=== PATIENT | male | born 2005 | race Two or more races ===

== ENCOUNTER 2024-12-09 19:17 | Emergency (ER) | payer BC, SELFPAY ==
[2024-12-09 19:20] VITALS: BMI 31.2
--- NOTE | 2024-12-09 19:35 | PC.NURSE ---
MOTHER INFORMED SECURITY THAT THEY ARE GOING TO [facility].
== END 2024-12-09 23:01 | disposition left against medical advice (07) ==
LOC: SERX 19:41
PROVIDERS: Emergency Provider Emergency Medicine
DX: Z53.21 Procedure and treatment not carried out due to patient leaving prior to being seen by health care provider (principal)